=== PATIENT | female | born 1955 | race Caucasian/White ===

== ENCOUNTER 2021-03-13 21:43 | Observation (INO) ==
[2021-03-13] MEDS ORDERED: ONDANSETRON 4 MG/2 ML VIAL IV ONE (22:05)
[2021-03-13] MEDS ORDERED: fentaNYL 100 MCG/2 ML VIAL IV ONE ×2 (22:05→23:36)
--- NOTE | 2021-03-13 22:21 | Emergency Department Note ---
Abdominal Pain HPI General Chief Complaint: Abdominal Pain Stated Complaint: Gallbladder pain Time Seen by Provider: 03/13/21 22:00 Source: patient Mode of arrival: ambulatory Limitations: no limitations and other (Uncomfortable appearing) History of Present Illness HPI Narrative: Narrative: Patient presents emergency department for evaluation of epigastric and right upper quadrant abdominal pain. She has a known history of gallstones. She ate a little bit of [place] food about 7:00 and shortly thereafter developed epigastric and right upper quadrant abdominal pain consistent with her prior episodes of pain. No fever. Symptoms are associate with nausea vomiting. No other complaints. Related Data Home Medications Medication Instructions Recorded Confirmed cholecalciferol (vitamin D3) 50 2,000 unit PO HS 08/16/17 03/13/21 mcg (2,000 unit) capsule ascorbate calcium (vitamin C) 500 500 mg PO QDAY 12/27/19 03/13/21 mg tablet ipratropium 0.5 mg-albuterol 3 mg 3 ml INHALATION TID PRN ml 09/15/20 03/14/21 (2.5 mg base)/3 mL nebulization soln triamcinolone acetonide 0.1 % 1 applic TOPICAL TID PRN g 09/15/20 03/14/21 topical ointment acetaminophen 650 mg 1,300 mg PO Q12H 10/12/20 03/13/21 tablet,extended release calcium 600 mg PO HS 03/12/21 03/13/21 clotrimazole-betamethasone 1 applic TOPICAL BID PRN 03/12/21 03/13/21 duloxetine 20 mg PO HS 03/12/21 03/13/21 ncdpqkgq-his-qnip-FA-lutein 1 tab PO HS 03/12/21 03/13/21 [Centrum Silver Women] omeprazole 40 mg PO HS 03/12/21 03/14/21 Previous Rx's Medication Instructions Recorded nebulizer accessories #1 each 08/29/17 nebulizers #1 each 08/29/17 CPAP mask #1 ea 11/01/18 albuterol sulfate 1 - 2 puff IH Q6H PRN #1 hfa.aer.ad 07/29/19 cpap machine #1 ea 09/26/19 amitriptyline 75 mg tablet 75 mg PO QHS 90 Days #90 tab 07/21/20 amlodipine 2.5 mg tablet 2.5 mg PO QHS 90 Days #90 tab 09/30/20 hydrochlorothiazide 12.5 mg tablet 12.5 mg PO QAM 90 Days #90 tab 10/26/20 rosuvastatin 20 mg tablet 20 mg PO QDAY 90 Days #90 tab 12/03/20 montelukast 10 mg tablet 10 mg PO QDAY 90 Days #90 tab 02/24/21 sucralfate [Carafate] 10 ml PO QID #400 ml 03/10/21 Allergies Allergy/AdvReac Type Severity Reaction Status Date / Time methylene blue AdvReac Severe Unknown Verified 03/13/21 21:51 losartan AdvReac Intermediate Rash Verified 03/13/21 21:51 salmeterol AdvReac Intermediate choking Verified 03/13/21 21:51 [From Advair Diskus] and gagging horse serum Allergy Unknown Anaphylaxis Uncoded 03/12/21 15:49 Review of Systems ROS ROS Narrative: Narrative: As above, all other systems reviewed and negative. [facility] Narrative Patient History Narrative: Narrative: Reviewed Medical/Surgical/Family History All Active Problems (Updated 03/14/21 @ 00:52 by Joshua Holley MD) Cholelithiasis (Acute) Cholelithiasis (Acute) Acute epigastric pain (Acute) Elevated liver enzymes (Acute) Medicare annual wellness visit, initial (Acute) Mild anemia (Chronic) Injury of ankle, right (Acute) Fatty liver (Chronic) Bronchitis due to chemical (Acute) Acute bacterial rhinosinusitis (Acute) Bronchitis (Acute) Restless legs (Chronic) Sinusitis (Chronic) History of shingles (Chronic) Low back pain syndrome (Acute) Foot pain (Acute) RUSSELL (nonalcoholic steatohepatitis) (Chronic) Paresthesia of hand, bilateral (Chronic) Elevated liver enzymes (Chronic) LIZBETH positive (Chronic) Polyarthralgia (Acute) DIANA on CPAP (Chronic) Gastroesophageal reflux disease (Chronic) Respiratory distress (Acute) Dyspnea (Acute) Microalbuminuria (Chronic) Osteopenia (Chronic) Vitamin D deficiency (Chronic) Hypercalcemia (Chronic) History of parathyroidectomy (Chronic) Obesity (Chronic) H/O colonoscopy (Chronic) Hx of tonsillectomy (Chronic) History of open reduction and internal fixation (ORIF) procedure (Chronic) H/O: hysterectomy (Chronic) H/O tubal ligation (Chronic) COPD (chronic obstructive pulmonary disease) (Chronic) Insomnia (Chronic) Hyperlipidemia (Chronic) Hypertension, essential (Chronic) Medical History Acute bronchitis LIZBETH positive Chilel's palsy Chronic cough COPD (chronic obstructive pulmonary disease) Depression Elevated liver enzymes Fatty liver Gastroesophageal reflux disease History of shingles Hypercalcemia Hyperlipidemia Hypertension, essential Insomnia Kidney stones Medicare annual wellness visit, initial Microalbuminuria Mild anemia MRSA infection RUSSELL (nonalcoholic steatohepatitis) Obesity DIANA on CPAP Osteopenia Paresthesia of hand, bilateral Polyarthralgia RAD (reactive airway disease) Restless legs Sinusitis Vitamin D deficiency Surgical History H/O colonoscopy July 18, 2013. H/O tubal ligation H/O: hysterectomy 2009 B9 History of open reduction and internal fixation (ORIF) procedure 2007 Leg fracture x7 History of parathyroidectomy Hx of tonsillectomy Family History Sister Hyperlipidemia Hypertension, essential Alopecia Rheumatoid arthritis Mother Diabetes Hypertension, essential Thyroid disease Kidney disease Social History Smoking Status: Never smoker Alcohol Intake Frequency: does not drink Substance Use: does not use Exam Narrative Narrative: Narrative: General Limitations: no limitations and other (Uncomfortable appearing) Head Head: Present atraumatic and normocephalic Eye Eye: Present normal appearance, PERRL and EOMI ENT ENT: Present normal exam and normal oropharynx Neck Neck: Present normal inspection Adbominal Abdominal: Present soft and other (Epigastric and right upper quadrant tenderness to palpation.); Absent distention, guarding and rebound Extremities Extremities: Present normal inspection Neurological Neurological: Present alert, oriented X3 and CN II-XII intact; Absent motor sensory deficit Psychiatric Psychiatric: Present normal affect and normal mood Skin Skin: Present warm (WNL) and dry Course Vital Signs Vital signs: Vital Signs Temperature 98.7 F 03/13/21 21:44 Pulse Rate 82 03/13/21 21:44 Respiratory Rate 24 H 03/13/21 21:44 Blood Pressure 106/88 03/13/21 21:44 Pulse Oximetry (%) 100 03/13/21 21:44 Temperature 98.7 F 03/13/21 21:44 Pulse Rate 82 03/14/21 01:08 Respiratory Rate 24 H 03/13/21 21:44 Blood Pressure 148/78 03/14/21 01:08 Pulse Oximetry (%) 95 03/14/21 01:08 [facility] MDM Narrative Medical decision making narrative: Narrative: Labs reviewed as per the electronic medical record. Patient initially medicated with fentanyl 50 mcg had some improvement with the second dose did not seem to provide much improvement. She is switched to Dilaudid. She is given Zofran. I spoke with Dr. Murrell on-call general surgeon. Case reviewed in detail over the phone. Surgery agreed with admission. Discussed findings with patient and the family. Their questions were answered. They are agreeable with the plan. Lab Data Result diagrams: 03/13/21 22:21 03/13/21 22:21 Labs: Lab Results 03/13/21 03/13/21 Range/Units 22:21 22:21 WBC 9.5 (4.5-11.0) K/mcL RBC 4.21 (4.00-5.20) M/mcL Hgb 12.8 (12.0-15.0) g/dL Hct 38.3 (36.0-48.0) % MCV 91.0 (80.0-100.0) fL MCH 30.4 (26.0-34.0) pg MCHC 33.4 (31.0-36.0) g/dL RDW 12.6 (11.5-14.5) % Plt Count 254 (140-440) K/mcL MPV 10.3 (7.4-10.4) fL Neut % (Auto) 77.7 (38.0-78.0) % Lymph % (Auto) 14.8 L (15.0-49.0) % [place] % (Auto) 4.6 (1.0-12.0) % Eos % (Auto) 2.4 (0.0-7.0) % Baso % (Auto) 0.5 (0.0-2.0) % Lymph # (Auto) 1.41 L (1.50-4.80) K/mcL [place] # (Auto) 0.44 (0.10-0.90) K/mcL Eos # (Auto) 0.23 (0.00-0.70) K/mcL Baso # (Auto) 0.05 (0.00-0.20) K/mcL Absolute Neutrophils 7.41 (1.80-8.00) K/mcL Sodium 140 (133-145) mmol/L Potassium 3.6 (3.3-5.1) mmol/L Chloride 101 (96-108) mmol/L Carbon Dioxide 22 (22-30) mmol/L Anion Gap 17.0 H (8.0-16.0) BUN 14 (8-23) mg/dL Creatinine 1.1 (0.6-1.1) mg/dL GFR Calculation 52 Glucose 176 H (70-105) mg/dL Calcium 12.1 H (8.6-10.4) mg/dL Total Bilirubin 2.1 H (0.1-1.0) mg/dL AST 141 H (<32) U/L ALT 176 H (<40) U/L Alkaline Phosphatase 555 H (39-117) U/L Total Protein 8.5 H (5.9-8.4) gm/dL Albumin 4.7 (3.2-5.2) gm/dL Globulin 3.8 H (2.2-3.7) gm/dL Albumin/Globulin Ratio 1.2 (1.0-2.3) Lipase 33 (7-60) U/L ED POC Tests ED POC Tests: CRISTINA - SARS Antigen Negative Discharge Plan Patient/Caregiver Discharge Instructions Pt seen by INSTRUCTOR DANCING/PA only: No Clinical Impression: Cholelithiasis Patient Disposition: Xfer As Inpt ([facility]) Follow up with: Johnathan Caldera PA-C [Primary Care Provider] - Prescriptions: No Action amlodipine 2.5 mg tablet 2.5 mg PO QHS 90 Days Qty: 90 RF: 3 hydrochlorothiazide 12.5 mg tablet 12.5 mg tablet 12.5 mg PO QAM 90 Days Qty: 90 RF: 3 rosuvastatin 20 mg tablet 20 mg PO QDAY 90 Days Qty: 90 RF: 1 montelukast 10 mg tablet 10 mg PO QDAY 90 Days Qty: 90 RF: 1 cholecalciferol (vitamin D3) [D3-2000] 2,000 unit capsule 2,000 unit PO HS RF: 0 (DME) nebulizers [Sinustar Nebulizer] misc See Dose Instructions .ROUTE .MEDSUPPLY Qty: 1 RF: 0 (DME) nebulizer accessories [Reusable Nebulizer Kit] kit See Dose Instructions .ROUTE .MEDSUPPLY Qty: 1 RF: 0 ascorbate calcium (vitamin C) 500 mg tablet 500 mg PO QDAY RF: 0 amitriptyline 75 mg tablet 75 mg PO QHS 90 Days Qty: 90 RF: 3 acetaminophen [Tylenol Arthritis Pain] 650 mg tablet extended release 1,300 mg PO Q12H RF: 0 (DME) cpap machine Qty: 1 RF: 0 (DME) CPAP mask Qty: 1 RF: 0 ipratropium-albuterol 0.5 mg-3 mg(2.5 mg base)/3 mL solution for nebulization 3 ml INHALATION TID PRN (Reason: shortness of breath) RF: 0 triamcinolone acetonide 0.1 % ointment 1 applic TOPICAL TID PRN (Reason: Rash) RF: 0 albuterol sulfate 8.5 GM HFA aerosol inhaler 1 - 2 puff IH Q6H PRN (Reason: Wheezing) Qty: 1 RF: 0 sucralfate [Carafate] 100 mg/mL suspension 10 ml PO QID Qty: 400 RF: 0 calcium 600 mg Capsule 600 mg PO HS RF: 0 clotrimazole-betamethasone 1-0.05 % Cream 1 applic TOPICAL BID PRN (Reason: Rash) RF: 0 omeprazole 40 mg capsule,delayed release(DR/EC) 40 mg PO HS RF: 0 Centrum Silver Women 8 mg iron-400 mcg-300 mcg Tablet 1 tab PO HS RF: 0 duloxetine 20 mg capsule,delayed release(DR/EC) 20 mg PO HS RF: 0
[2021-03-13 23:26] LABS: Basophils # (Auto) 0.05 K/mcL (0.00-0.20); Basophils % (Auto) 0.5 % (0.0-2.0); Eosinophils # (Auto) 0.23 K/mcL (0.00-0.70); Eosinophils % (Auto) 2.4 % (0.0-7.0); Hematocrit 38.3 % (36.0-48.0); Hemoglobin 12.8 g/dL (12.0-15.0); Lymphocytes # (Auto) 1.41 K/mcL (1.50-4.80); Lymphocytes % (Auto) 14.8 % (15.0-49.0); Mean Corpuscular HGB Conc 33.4 g/dL (31.0-36.0); Mean Platelet Volume 10.3 fL (7.4-10.4); Monocytes # (Auto) 0.44 K/mcL (0.10-0.90); Monocytes % (Auto) 4.6 % (1.0-12.0); Neutrophils % (Auto) 77.7 % (38.0-78.0); Platelet Count 254 K/mcL (140-440); RBC 4.21 M/mcL (4.00-5.20); Red Cell Distribution Width 12.6 % (11.5-14.5); WBC 9.5 K/mcL (4.5-11.0)
[2021-03-13 23:48] LABS: ALT/SGPT 176 U/L (<40); AST/SGOT 141 U/L (<32); Albumin 4.7 gm/dL (3.2-5.2); Albumin/Globulin Ratio 1.2 (1.0-2.3); Alkaline Phosphatase 555 U/L (39-117); Bilirubin,Total 2.1 mg/dL (0.1-1.0); Blood Urea Nitrogen 14 mg/dL (8-23); Calcium 12.1 mg/dL (8.6-10.4); Carbon Dioxide 22 mmol/L (22-30); Chloride 101 mmol/L (96-108); Globulin 3.8 gm/dL (2.2-3.7); Glomerular Filtration Rate 52; Glucose 176 mg/dL (70-105)
[2021-03-14] MEDS ORDERED: HYDROmorphone 0.5 MG/0.5 ML SYRINGE IV ONE (00:05)
[2021-03-14] MEDS ORDERED: ONDANSETRON 4 MG/2 ML VIAL IV PRN ×2 (00:49→11:16)
[2021-03-14 02:15] LABS: Appearance,Urine CLEAR (Clear); Bilirubin,Urine Negative (Negative); Color,Urine YELLOW; Culture Indicated,Urine No; Glucose,Urine (UA) Negative (Negative); Ketones,Urine 5 mg/dL (Negative); Leukocyte Esterase,Urine Negative /ug (Negative); Nitrate,Urine Negative (Negative); Protein,Urine Negative (Negative); Specific Gravity,Urine 1.017 (1.000-1.035); Urine Blood Negative (Negative)
[2021-03-14] MEDS: 0.9 % SODIUM CHLORIDE 1,000 ML IV SCH ×2 (02:45→14:54)
[2021-03-14] MEDS: HYDROmorphone 0.5 MG/0.5 ML SYRINGE IV PRN ×2 (03:25→08:01)
--- NOTE | 2021-03-14 09:28 | General Surg History&Physical ---
HPI History of Present Illness Patient information: Note initiated : 03/14/21 at 9:25 am Service Date, if different from initiated Date: [] Patient: Tanan Cristina a 65 y/o F admitted on 03/14/21 for Gallbladder pain. Chief Complaint: [] History of present illness: Ms. Cristina is a 65 year old F who was initially seen in the emergency room several days ago, I saw her in clinic 2 days ago with the following symptoms. This is a pleasant 65-year-old female who was recently seen in the emergency room with acute onset of epigastric abdominal pain. Patient was given simethicone which seemed to help with her pain, however she reports that she continues to have some nausea and epigastric pain after eating with every meal at this time. Work-up was significant for cholelithiasis, patient has a known history of gastroesophageal reflux disease and gastritis. When discussing with her symptoms she does report that she has had intermittent epigastric pain following fatty and greasy foods over the last several years but always attributed to her reflux. She denies any fevers or chills at this time. She does report some dark urine and nausea with eating. Since that time her pain is progressed she represented to the emergency room last night with increased total bili, and abdominal pain. She is admitted for laparoscopic cholecystectomy Review of Systems Review of systems: All systems are reviewed, negative other than above PFSH PFSH All Active Problems Choledocholithiasis (Acute) Cholelithiasis (Acute) Cholelithiasis (Acute) Acute epigastric pain (Acute) Elevated liver enzymes (Acute) Medicare annual wellness visit, initial (Acute) Mild anemia (Chronic) Injury of ankle, right (Acute) Fatty liver (Chronic) Bronchitis due to chemical (Acute) Acute bacterial rhinosinusitis (Acute) Bronchitis (Acute) Restless legs (Chronic) Sinusitis (Chronic) History of shingles (Chronic) Low back pain syndrome (Acute) Foot pain (Acute) RUSSELL (nonalcoholic steatohepatitis) (Chronic) Paresthesia of hand, bilateral (Chronic) Elevated liver enzymes (Chronic) LIZBETH positive (Chronic) Polyarthralgia (Acute) DIANA on CPAP (Chronic) Gastroesophageal reflux disease (Chronic) Respiratory distress (Acute) Dyspnea (Acute) Microalbuminuria (Chronic) Osteopenia (Chronic) Vitamin D deficiency (Chronic) Hypercalcemia (Chronic) History of parathyroidectomy (Chronic) Obesity (Chronic) H/O colonoscopy (Chronic) Hx of tonsillectomy (Chronic) History of open reduction and internal fixation (ORIF) procedure (Chronic) H/O: hysterectomy (Chronic) H/O tubal ligation (Chronic) COPD (chronic obstructive pulmonary disease) (Chronic) Insomnia (Chronic) Hyperlipidemia (Chronic) Hypertension, essential (Chronic) Medical History Acute bronchitis LIZBETH positive Chilel's palsy Chronic cough COPD (chronic obstructive pulmonary disease) Depression Elevated liver enzymes Fatty liver Gastroesophageal reflux disease History of shingles Hypercalcemia Hyperlipidemia Hypertension, essential Insomnia Kidney stones Medicare annual wellness visit, initial Microalbuminuria Mild anemia MRSA infection RUSSELL (nonalcoholic steatohepatitis) Obesity DIANA on CPAP Osteopenia Paresthesia of hand, bilateral Polyarthralgia RAD (reactive airway disease) Restless legs Sinusitis Vitamin D deficiency Surgical History H/O colonoscopy July 18, 2013. 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 other: Children-3 eating out: 1-3 times/week physical activity: walking and other details: treadmill and recumbent bicycle smoking status: Never smoker alcohol intake frequency: does not drink substance use type: does not use jeanette/sabianism: None seatbelt use: always MEDS/ALLERGIES Home Medications and Allergies Home Medications Medication Instructions Recorded Confirmed Type cholecalciferol (vitamin D3) 50 2,000 unit PO HS 08/16/17 03/14/21 History mcg (2,000 unit) capsule nebulizer accessories #1 each 08/29/17 03/14/21 Rx nebulizers #1 each 08/29/17 03/14/21 Rx CPAP mask #1 ea 11/01/18 03/14/21 Rx albuterol sulfate 1 - 2 puff IH Q6H PRN #1 hfa.aer.ad 07/29/19 03/14/21 Rx cpap machine #1 ea 09/26/19 03/14/21 Rx ascorbate calcium (vitamin C) 500 500 mg PO QDAY 12/27/19 03/14/21 History mg tablet amitriptyline 75 mg tablet 75 mg PO QHS 90 Days #90 tab 07/21/20 03/14/21 Rx ipratropium 0.5 mg-albuterol 3 mg 3 ml INHALATION TID PRN ml 09/15/20 03/14/21 History (2.5 mg base)/3 mL nebulization soln triamcinolone acetonide 0.1 % 1 applic TOPICAL TID PRN g 09/15/20 03/14/21 History topical ointment amlodipine 2.5 mg tablet 2.5 mg PO QHS 90 Days #90 tab 09/30/20 03/14/21 Rx acetaminophen 650 mg 1,300 mg PO Q12H 10/12/20 03/14/21 History tablet,extended release hydrochlorothiazide 12.5 mg tablet 12.5 mg PO QAM 90 Days #90 tab 10/26/20 03/14/21 Rx rosuvastatin 20 mg tablet 20 mg PO QDAY 90 Days #90 tab 12/03/20 03/14/21 Rx montelukast 10 mg tablet 10 mg PO QDAY 90 Days #90 tab 02/24/21 03/14/21 Rx sucralfate [Carafate] 10 ml PO QID #400 ml 03/10/21 03/14/21 Rx calcium 600 mg PO HS 03/12/21 03/14/21 History clotrimazole-betamethasone 1 applic TOPICAL BID PRN 03/12/21 03/14/21 History duloxetine 20 mg PO HS 03/12/21 03/14/21 History iatsswto-stf-ywix-FA-lutein 1 tab PO HS 03/12/21 03/14/21 History [Centrum Silver Women] omeprazole 40 mg PO HS 03/12/21 03/14/21 History Allergies Allergy/AdvReac Type Severity Reaction Status Date / Time methylene blue AdvReac Severe Unknown Verified 03/14/21 03:19 losartan AdvReac Intermediate Rash Verified 03/14/21 03:19 salmeterol AdvReac Intermediate choking Verified 03/14/21 03:19 [From Advair Diskus] and gagging horse serum Allergy Unknown Anaphylaxis Uncoded 03/12/21 15:49 Physical Examination Vital Signs Vital signs: Temp Pulse Resp BP Pulse Ox 97.7 F 83 18 132/72 96 03/14/21 07:48 03/14/21 07:48 03/14/21 07:48 03/14/21 07:48 03/14/21 07:48 General physical appearance General physical exam: well developed, well nourished and no distress Eyes Eye exam: PERRL and normal ocular movement ENT ENT exam: normal pinna, normal nares, normal mucosa, no hearing loss and no c ongestion Head Head exam IM: Present atraumatic and normocephalic Neck Neck exam: no masses, no bruits, trachea midline, no lymphadenopathy and no venous distension Cardiovascular Cardiovascular exam IM: Present normal rate and rhythm Respiratory Respiratory exam: normal expansion, normal respiratory effort, clear to percussion and clear to auscultation Abdomen Abdomen: Present soft, tender (RUQ) and bowel sounds Hernia: Present none Genitourinary Genitourinary (Female): Present normal external genitalia Rectum Rectum: Present normal sphincter tone, no hemorrhoids, no tenderness, no masses and no bleeding Integumentary Integumentary: Present no rash, no growths and no abnormal pigmentation Neurologic Neurologic: Present normal coordination and normal sensation Musculoskeletal Musculoskeletal: Present normal gait and normal posture Psychiatric Psychiatric: Present oriented to time, oriented to person, oriented to place, speech is normal and memory intact Results Labs Result diagrams: 03/13/21 22:21 03/13/21 22:21 Labs: Abnormal lab results 03/13/21 03/13/21 03/14/21 Range/Units 22:21 22:21 01:09 Lymph % (Auto) 14.8 L (15.0-49.0) % Lymph # (Auto) 1.41 L (1.50-4.80) K/mcL Anion Gap 17.0 H (8.0-16.0) Glucose 176 H (70-105) mg/dL Calcium 12.1 H (8.6-10.4) mg/dL Total Bilirubin 2.1 H (0.1-1.0) mg/dL AST 141 H (<32) U/L ALT 176 H (<40) U/L Alkaline Phosphatase 555 H (39-117) U/L Total Protein 8.5 H (5.9-8.4) gm/dL Globulin 3.8 H (2.2-3.7) gm/dL Urine Ketones 5 A (Negative) mg/dL Urine Urobilinogen 4.0 A mg/dL Diabetes panel 03/13/21 Range/Units 22:21 Sodium 140 (133-145) mmol/L Potassium 3.6 (3.3-5.1) mmol/L Chloride 101 (96-108) mmol/L Carbon Dioxide 22 (22-30) mmol/L BUN 14 (8-23) mg/dL Creatinine 1.1 (0.6-1.1) mg/dL Glucose 176 H (70-105) mg/dL Calcium 12.1 H (8.6-10.4) mg/dL AST 141 H (<32) U/L ALT 176 H (<40) U/L Alkaline Phosphatase 555 H (39-117) U/L Total Protein 8.5 H (5.9-8.4) gm/dL Albumin 4.7 (3.2-5.2) gm/dL Calcium panel 03/13/21 Range/Units 22:21 Calcium 12.1 H (8.6-10.4) mg/dL Albumin 4.7 (3.2-5.2) gm/dL Pituitary panel 03/13/21 Range/Units 22:21 Sodium 140 (133-145) mmol/L Potassium 3.6 (3.3-5.1) mmol/L Chloride 101 (96-108) mmol/L Carbon Dioxide 22 (22-30) mmol/L BUN 14 (8-23) mg/dL Creatinine 1.1 (0.6-1.1) mg/dL Glucose 176 H (70-105) mg/dL Calcium 12.1 H (8.6-10.4) mg/dL Adrenal panel 03/13/21 Range/Units 22:21 Sodium 140 (133-145) mmol/L Potassium 3.6 (3.3-5.1) mmol/L Chloride 101 (96-108) mmol/L Carbon Dioxide 22 (22-30) mmol/L BUN 14 (8-23) mg/dL Creatinine 1.1 (0.6-1.1) mg/dL Glucose 176 H (70-105) mg/dL Calcium 12.1 H (8.6-10.4) mg/dL Total Bilirubin 2.1 H (0.1-1.0) mg/dL AST 141 H (<32) U/L ALT 176 H (<40) U/L Alkaline Phosphatase 555 H (39-117) U/L Total Protein 8.5 H (5.9-8.4) gm/dL Albumin 4.7 (3.2-5.2) gm/dL All other labs normal. A/P Assessment and plan (1) Cholelithiasis: Status: Acute (2) Acute epigastric pain: Status: Acute (3) Elevated liver enzymes: Status: Acute (4) Choledocholithiasis: Status: Acute Narrative A/P Narrative: This is a pleasant 65-year-old female who presents with signs symptoms concerning for cholecystitis, possible choledocholithiasis. Risk, benefits, alternatives to treatment discussed with her at length. She will be admitted, plan is to take to the operating room and next available OR slot for a laparoscopic cholecystectomy with intraoperative cholangiogram, possible common bile duct expiration. She verbalizes understanding and all of her questions were answered. Time Spent With Patient Time: Total time spent is greater than 50% in coordination of care (as documented) at patient's floor/unit and/or counseling patient:
[2021-03-14] MEDS ORDERED: ceFAZolin 2 GM in DEXTROSE 5% IN WATER 50 ML IV SCH (09:30)
[2021-03-14] MEDS ORDERED: MIDAZOLAM 2 MG/2 ML VIAL ONE (09:48)
[2021-03-14] MEDS ORDERED: SUGAMMADEX SODIUM 200 MG/2 ML VIAL IV ONE (09:48)
[2021-03-14] MEDS ORDERED: ONDANSETRON 4 MG/2 ML VIAL ONE (09:48)
[2021-03-14] MEDS ORDERED: KETAMINE 50 MG/ML ML ONE (09:48)
[2021-03-14] MEDS ORDERED: ROCURONIUM 10 MG/ML ML IV ONE (09:48)
[2021-03-14] MEDS ORDERED: fentaNYL 100 MCG/2 ML VIAL IV ONE (09:48)
[2021-03-14] MEDS ORDERED: LIDOCAINE HCL/PF 100 MG/5 ML SYRINGE IV ONE (09:48)
[2021-03-14] MEDS ORDERED: MAGNESIUM SULFATE 2 GM/50 ML BAG IV ONE (09:48)
[2021-03-14] MEDS ORDERED: GLYCOPYRROLATE 0.2 MG/ML VIAL IV ONE (09:48)
[2021-03-14] MEDS ORDERED: DEXAMETHASONE 10 MG/ML VIAL ONE (09:48)
[2021-03-14] MEDS ORDERED: PHENYLEPHRINE 10 MG/ML VIAL ONE (09:48)
[2021-03-14] MEDS ORDERED: PROPOFOL 200 MG/20 ML VIAL IV ONE (09:48)
[2021-03-14] MEDS ORDERED: LIDOCAINE 1% 20 ML, BUPIVACAINE W/EPI 0.5% 20 ML SQ ONE (10:01)
[2021-03-14] MEDS ORDERED: IOVERSOL 20 ML VIAL IJ ONE (10:01)
--- NOTE | 2021-03-14 10:55 | Operative Note ---
Brief Operative Note Date of procedure: 03/14/21 Pre-op diagnosis: Acute cholecystitis, choledocholithiasis Post-op diagnosis: same Procedure: Exploratory laparotomy with interoperative cholangiogram Grafts/Implants: No Anesthesia: GETA Findings: Distal common bile duct stone which passed spontaneously with cholangiogram, cholecystitis, gallbladder hydrops Complications: none Surgeon: Neymar Murrell Estimated blood loss (cc): 25 Specimens Removed/Pathology: other (Gallbladder and contents) Condition: stable Disposition: PACU Operative Note Operative Note: After risk benefits and alternatives to the procedure were discussed with the patient at length she verbalized understanding and desire to continue with the procedure. Patient was taken main operating room placed upon the operative table. General anesthesia was induced over endotracheal tube. Patient was prepped and draped in the standard sterile surgical fashion. Surgical timeout was taken to verify patient and procedure being performed. 1% lidocaine half percent Marcaine was used for local anesthesia throughout the case. Left upper quadrant incision was made, a varies needle was inserted and the abdominal cavity was insufflated with carbon dioxide. The abdominal cavity was then entered under direct vision using a 5 mm Optiview trocar through a supraumbilical incision. Visual inspection revealed no injuries and the varies needle was removed under direct vision. 12 mm upper midline trocar, 5 mm right upper quadrant, and a second 5 mm right upper quadrant trochars were all placed under direct vision. Patient was placed in a head up right side up position. Attention was turned to the gallbladder which was acutely inflamed and dilated. Large amount of omental adhesions were carefully taken down with blunt and electrocautery dissection. This was dissected down to the infundibulum which was then carefully dissected free with blunt and electrocautery dissection after releasing the peritoneum to pedunculated the gallbladder. Once a critical view of safety was clearly identified the cystic duct was surgically clipped, a ductotomy was created and on table cholangiogram was performed. The common bile duct common hepatic left and right hepatic ducts filled without difficulty, there was a small distal obstruction which released and passed into the small bowel and the small bowel filled without difficulty after couple seconds under fluoroscopy. The cholangiocatheter was removed, the cystic duct and cystic artery were then surgically clipped and transected. The gallbladder was removed from the gallbladder fossa using electrocautery, placed in Endo Catch bag removed through the upper midline incision and passed off the field for surgical pathology. Attention was turned back to the gallbladder fossa which was copiously irrigated and all irrigant was suctioned free from the abdominal cavity. The gallbladder fossa was inspected for hemostasis which was obtained by electrocautery. Visual inspection of the clips showed that they were in good position. The upper midline fascial defect was then reapproximated with a interrupted 0 Vicryl suture. CO2 and trochars were removed from the abdominal cavity under direct vision. Trocar sites were inspected for hemostasis. Skin edges were closed with interrupted 4 Monocryl sutures skin glue dressings were applied. Patient was then awakened from anesthesia transported postanesthesia care unit awake alert in good condition.
--- NOTE | 2021-03-14 11:10 | Discharge Summary ---
Discharge Provider Provider Patient information: Note initiated : 03/14/21 at 11:09 am Service Date, if different from initiated Date: [] Patient: Tanna Cristina 65 y/o F admitted on 03/14/21 for Gallbladder pain. Chief Complaint: [] Date of admission: 03/14/21 02:33 Discharge date: 03/14/21 Primary care physician: Johnathan Caldera PA-C Consults: 03/14/21 Consult to Physician [CONS] Stat Comment: Consulting Provider: Neymar Murrell Reason For Exam: Physician to Consult COURSE Hospital Course Hospital course: Patient mated with acute cholecystitis, possible choledocholithiasis. Patient was taken operating room underwent a laparoscopic cholecystectomy with interoperative cholangiogram which showed distal common bile duct obstruction which released during the cholangiogram. Patient tolerated procedure well. Discharge diagnosis: Status post cholecystectomy Time Spent with Patient Time attestation: Total time spent providing and/or coordinating discharge services: Physical Examination Vital Signs Vital signs: Temp Pulse Resp BP Pulse Ox 97.7 F 90 15 128/78 91 03/14/21 07:48 03/14/21 11:03 03/14/21 11:03 03/14/21 11:04 03/14/21 11:03 Discharge Plan Patient/Caregiver Discharge Instructions Activity: increase activity as tolerated Diet: Regular Diet Activity Restrictions/Additional Instructions: Gradually increase activity as tolerated, no weight lifting restrictions. Resume bathing as normal. Resume normal diet as tolerated, avoid fatty and greasy foods for the next 3 to 6 months. Prescriptions: New ibuprofen 800 mg tablet 800 mg PO TID PRN (Reason: pain) Qty: 60 RF: 0 acetaminophen [Tylenol 8 Hour] 650 mg tablet extended release 650 mg PO Q8H PRN (Reason: pain) Qty: 60 RF: 0 oxycodone 5 mg tablet 5 mg PO Q6H PRN (Reason: pain) Qty: 5 RF: 0 Continued amlodipine 2.5 mg tablet 2.5 mg PO QHS 90 Days Qty: 90 RF: 3 hydrochlorothiazide 12.5 mg tablet 12.5 mg tablet 12.5 mg PO QAM 90 Days Qty: 90 RF: 3 rosuvastatin 20 mg tablet 20 mg PO QDAY 90 Days Qty: 90 RF: 1 montelukast 10 mg tablet 10 mg PO QDAY 90 Days Qty: 90 RF: 1 cholecalciferol (vitamin D3) [D3-2000] 2,000 unit capsule 2,000 unit PO HS RF: 0 (DME) nebulizers [Sinustar Nebulizer] misc See Dose Instructions .ROUTE .MEDSUPPLY Qty: 1 RF: 0 (DME) nebulizer accessories [Reusable Nebulizer Kit] kit See Dose Instructions .ROUTE .MEDSUPPLY Qty: 1 RF: 0 ascorbate calcium (vitamin C) 500 mg tablet 500 mg PO QDAY RF: 0 amitriptyline 75 mg tablet 75 mg PO QHS 90 Days Qty: 90 RF: 3 acetaminophen [Tylenol Arthritis Pain] 650 mg tablet extended release 1,300 mg PO Q12H RF: 0 (DME) cpap machine Qty: 1 RF: 0 (DME) CPAP mask Qty: 1 RF: 0 ipratropium-albuterol 0.5 mg-3 mg(2.5 mg base)/3 mL solution for nebulization 3 ml INHALATION TID PRN (Reason: shortness of breath) RF: 0 triamcinolone acetonide 0.1 % ointment 1 applic TOPICAL TID PRN (Reason: Rash) RF: 0 albuterol sulfate 8.5 GM HFA aerosol inhaler 1 - 2 puff IH Q6H PRN (Reason: Wheezing) Qty: 1 RF: 0 sucralfate [Carafate] 100 mg/mL suspension 10 ml PO QID Qty: 400 RF: 0 calcium 600 mg Capsule 600 mg PO HS RF: 0 clotrimazole-betamethasone 1-0.05 % Cream 1 applic TOPICAL BID PRN (Reason: Rash) RF: 0 omeprazole 40 mg capsule,delayed release(DR/EC) 40 mg PO HS RF: 0 Centrum Silver Women 8 mg iron-400 mcg-300 mcg Tablet 1 tab PO HS RF: 0 duloxetine 20 mg capsule,delayed release(DR/EC) 20 mg PO HS RF: 0 Follow Up Plan Follow up with: Johnathan Caldera PA-C [Primary Care Provider] - Neymar Murrell MD [Physician] - Patient Disposition: Home, Self-Care Discharge Orders: Discharge Order (Routine); Ordered 03/14/21 Ordered By: Neymar Murrell Pending Pending Pending: Resuscitation Status Full Code Diet NPO Diet (NOW) Start Sun Mar 14 149 Hydromorphone HCl (Hydromorphone 0.5 Mg/0.5 Ml Syringe) 0.5 mg IV Q2HP PRN; Protocol PRN Reason: Per Pain Protocol Last Admin: 03/14/21 08:01 Dose: 0.5 mg Documented by: [email or web address] Admin: 03/14/21 03:25 Dose: 0.5 mg Documented by: PEDRO LUIS Sodium Chloride (Sodium Chloride 0.9%) 1,000 mls @ 125 mls/hr IV .Q8H KEKE Last Admin: 03/14/21 02:45 Dose: 125 mls/hr Documented by: [email or web address] Cefazolin Sodium 2 gm/ (Dextrose) 50 mls @ 100 mls/hr IV PREOP KEKE; Protocol Stop: 03/14/21 16:00 Last Infusion: 03/14/21 10:15 Dose: 0 mls/hr Documented by: Admin: 03/14/21 09:48 Dose: 100 mls/hr Documented by: JAMIE Shift Summary 03/14/21 04:24 Shift Summary by Taniya Partida, pleasant and cooperative. Up ad frankie. Had came in on the 03/10 with abdominal pain and was found to have non obstructing gallstones. Surgery was scheduled for this with Dr Murrell to have her gallblader removed. After she ate dinner last night she started having excruciating pain and came back to the ED. She was admitted to the floor around [address] Murrell doing surgery today. The ED sent of MRSA, covid negative, EKG, and UA to have done for surgery. Patient wears a cpap at home so was put on 2L oxymask. 22G LH NS @ 125. Dilaudid 0.5mg X 1. BP have been elevated. Will update at bedside. Initialized on 03/14/21 04:24 - END OF NOTE
[2021-03-14] MEDS ORDERED: IPRATROPIUM/ALBUTEROL 3 ML AMPUL.NEB NEB ONE (11:14)
[2021-03-14] MEDS ORDERED: fentaNYL 100 MCG/2 ML VIAL IV PRN (11:16)
[2021-03-14] MEDS ORDERED: KETOROLAC 15 MG/ML VIAL IV PRN (11:16)
[2021-03-14] MEDS ORDERED: BENZOCAINE/MENTHOL 1 LOZENGE PO PRN (11:16)
[2021-03-14] MEDS ORDERED: MEPERIDINE 50 MG/ML VIAL IM PRN (11:16)
[2021-03-14] MEDS ORDERED: PROMETHAZINE 25 MG/ML VIAL IM PRN (11:16)
[2021-03-14] MEDS ORDERED: MEPERIDINE 25 MG/ML VIAL IV PRN (11:16)
[2021-03-14] MEDS ORDERED: IPRATROPIUM/ALBUTEROL 3 ML AMPUL.NEB NEB PRN (11:16)
[2021-03-14] MEDS ORDERED: LACTATED RINGERS 1,000 ML IV SCH (11:30)
[2021-03-14] MEDS ORDERED: oxyCODONE 10 MG TAB.ER.12H PO SCH (13:00)
[2021-03-14] MEDS ORDERED: oxyCODONE HCL 5 MG TABLET PO PRN (13:09)
--- NOTE | 2021-03-14 15:08 | XRay Report ---
CLINICAL INFORMATION: surgery COMPARISON: None. FINDINGS: Intraoperative cholangiogram with contrast injected into the cystic duct. Cystic duct, proximal right and left ducts, common hepatic and common bile duct shows no filling defects seen to suggest choledocholithiasis. The ducts are normal caliber.. IMPRESSION: Visualized intrahepatic and common bile ducts are normal caliber - no evidence of choledocholithiasis Interpreted and Authenticated by: Ken Land 03/14/21
--- NOTE | 2021-03-14 17:19 | EKG ---
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 Measurements Intervals [place] Rate: 77 P: 44 [place]: 189 QRS: -40 QRSD: 110 T: 64 QT: 412 QTc: 467 Interpretive Statements Sinus rhythm Left anterior fascicular block Left ventricular hypertrophy Since previous ECG of 03-12-2021 NSC ABNORMAL ECG Electronically Signed On 03-14-2021 17:19:00 PDT by Pedro Bernard M.D. /[facility] [place]/[id number]
--- NOTE | 2021-03-17 16:16 | Surgical Pathology Report ---
Histology Microscopic Diagnosis Specimen A- GALLBLADDER, CHOLECYSTECTOMY: --- ACUTE AND CHRONIC CHOLECYSTITIS WITH CHOLELITHIASIS. (ACP:sln) Procedural Impression Cholelithiasis. Gross Description Received in formalin labeled with the patient information designated as gallbladder, is a 8.1 x 3.9 x 1.8 cm pink purple gallbladder specimen. The majority of the serosa is smooth and glistening with approximately 40% roughened brown-lion. There are two metal clamps present one of which is on the cystic duct. A 0.3 cm hole is present at the fundus of the gallbladder specimen. The mucosa is velvety pink-lion with no masses or lesions identified. The wall is up to 0.4 cm thick. Within the gallbladder specimen and the specimen container are multiple soft black-brown rounded stones, up to 0.3 cm. Rodbuster portions are submitted in one cassette. (KGW:bmw) Electronically Signed Valentin Barrera MD, FCAP Electronically Signed 03/17/2021 16:09
== END 2021-03-14 14:30 | disposition home or self-care (01) ==
LOC: ICU 21:43 → ED 21:43 → ICU 03-14 02:36
PROVIDERS: ADMIT Surgery; ATTEND Surgery

== ENCOUNTER 2023-05-02 10:46 | Inpatient (IN) ==
[2023-05-02] MEDS ORDERED: LACTATED RINGERS 1,000 ML IV ONE (10:58)
[2023-05-02 11:16] LABS: POC Calcium, Ionized 1.36 (1.16-1.32); POC Creatinine 1.4 (0.6-1.2); POC Potassium 4.1 (3.3-5.1)
[2023-05-02] MEDS ORDERED: DEXTROSE 50% 50 ML SYRINGE IV ONE (11:53)
[2023-05-02] MEDS ORDERED: INSULIN REGULAR, HUMAN 1 UNIT/0.01 ML UNIT IV ONE (11:53)
[2023-05-02 12:00] LABS: Basophils # (Auto) 0.09 K/mcL (0.00-0.30); Basophils % (Auto) 1.3 % (0.0-2.0); Eosinophils # (Auto) 0.17 K/mcL (0.00-0.70); Eosinophils % (Auto) 2.4 % (0.0-7.0); Hematocrit 37.5 % (34.1-44.9); Hemoglobin 13.1 g/dL (11.2-15.7); Lymphocytes # (Auto) 1.72 K/mcL (1.50-4.80); Lymphocytes % (Auto) 24.6 % (15.5-49.0); Mean Cell Volume 87.2 fL (80.0-100.0); Mean Corpuscular HGB Conc 34.9 g/dL (31.0-36.0); Mean Platelet Volume 11.1 fL (8.8-12.5); Monocytes # (Auto) 0.49 K/mcL (0.10-0.90); Neutrophils % (Auto) 64.4 % (38.0-78.0); Platelet Count 241 K/mcL (140-440); Red Cell Distribution Width 12.8 % (11.5-14.5)
[2023-05-02 12:06] LABS: Appearance,Urine HAZY (Clear); Bilirubin,Urine Negative (Negative); Color,Urine YELLOW; Culture Indicated,Urine yes; Glucose,Urine (UA) >=500 mg/dL (Negative); Ketones,Urine 5 mg/dL (Negative); Leukocyte Esterase,Urine 25 /uL (Negative); Mucus,Urine FEW /hpf; Nitrate,Urine Negative (Negative); Protein,Urine 30 mg/dL (Negative); Specific Gravity,Urine 1.029 (1.000-1.035); Urine Blood Negative (Negative); Urine Hyaline Cast 1 /lph (0-2); Urine RBC 4 /hpf (0-3); Urine Squamous Epithelial Cell 1 /hpf (0-4); Urine Transitional Epi Cells 1 /hpf (0-2); Urine WBC 12 /hpf (0-4); Urobilinogen,Urine Negative
[2023-05-02 12:25] LABS: Beta Hydroxybutyrate 2.04 mmol/L (<0.27)
[2023-05-02 12:26] LABS: ALT/SGPT 32 U/L (<40); AST/SGOT 41 U/L (<32); Albumin 4.6 gm/dL (3.2-5.2); Alkaline Phosphatase 269 U/L (39-117); Bilirubin,Direct 0.3 mg/dL (<0.3); Bilirubin,Total 1.1 mg/dL (0.1-1.0); Globulin 3.5 gm/dL (2.2-3.7)
[2023-05-02 12:40] LABS: Hemoglobin A1C 13.3 % Hgb (4.0-6.0)
[2023-05-02 12:46] LABS: ABG Methemoglobin 0.1 % (0.4-1.5); Total Hemoglobin 13.5 gm/Dl (12.0-15.0); VBG Base Excess 2 (-2-3); VBG HCO3 25.4 mmol/L (24.0-28.0); VBG PCO2 37.7 mmHg (41.0-51.0); VBG PH 7.45 U (7.32-7.42); VBG PO2 79.5 mmHg (25.0-40.0); VBG Total CO2 26.5 mmol/L (25.0-29.0)
[2023-05-02] MEDS: INSULIN REGULAR, HUMAN 50 UNIT in 0.9 % SODIUM CHLORIDE 99.5 ML IV SCH ×2 (12:59→22:51)
[2023-05-02] MEDS ORDERED: LACTULOSE 20 GM/30 ML ORAL.SOL PO PRN (14:12)
[2023-05-02] MEDS: 0.9 % SODIUM CHLORIDE 1,000 ML IV SCH ×2 (15:13→20:59)
[2023-05-02] MEDS ORDERED: DEXTROSE 5%-LR 1,000 ML IV SCH ×2 (15:15→21:16)
[2023-05-02] MEDS: HYDROCORTISONE ACETATE 25 MG SUPP.RECT PR SCH ×2 (17:11→21:00)
[2023-05-02 17:32] LABS: ALT/SGPT 28 U/L (<40); AST/SGOT 43 U/L (<32); Albumin/Globulin Ratio 1.2 (1.0-2.3); Alkaline Phosphatase 240 U/L (39-117); Bilirubin,Total 0.8 mg/dL (0.1-1.0); Blood Urea Nitrogen 11 mg/dL (8-23); Carbon Dioxide 26 mmol/L (22-30); Chloride 93 mmol/L (96-108); Globulin 3.3 gm/dL (2.2-3.7); Glomerular Filtration Rate 51; Glucose 184 mg/dL (70-105)
[2023-05-02] MEDS: IPRATROPIUM/ALBUTEROL 3 ML AMPUL.NEB NEB SCH (19:10)
[2023-05-02] MEDS ORDERED: INSULIN REGULAR, HUMAN 1 UNIT/0.01 ML UNIT ONE ×4 (19:14→22:44)
[2023-05-02] MEDS: BUDESONIDE 0.5 MG/2 ML AMPUL.NEB NEB SCH (19:20)
[2023-05-02] MEDS: SENNOSIDES 1 TABLET PO PRN (19:25)
[2023-05-02] MEDS: DOCUSATE SODIUM 100 MG CAPSULE PO SCH (19:25)
[2023-05-02] MEDS: 0.9 % SODIUM CHLORIDE 10 ML SYRINGE IV SCH (22:02)
[2023-05-03] MEDS ORDERED: INSULIN REGULAR, HUMAN 1 UNIT/0.01 ML UNIT ONE (00:52)
[2023-05-03] MEDS: INSULIN REGULAR, HUMAN 50 UNIT in 0.9 % SODIUM CHLORIDE 99.5 ML IV SCH (00:56)
[2023-05-03] MEDS: IPRATROPIUM/ALBUTEROL 3 ML AMPUL.NEB NEB SCH ×4 (01:01→18:40)
[2023-05-03 04:48] LABS: ABG Methemoglobin 0.1 % (0.4-1.5); Total Hemoglobin 12.5 gm/Dl (12.0-15.0); VBG Base Excess 1 (-2-3); VBG HCO3 24.4 mmol/L (24.0-28.0); VBG Oxygen Saturation 91.4 % (40.0-70.0); VBG PCO2 35.7 mmHg (41.0-51.0); VBG PH 7.45 U (7.32-7.42); VBG PO2 87.5 mmHg (25.0-40.0); VBG Total CO2 25.5 mmol/L (25.0-29.0)
[2023-05-03] MEDS: 0.9 % SODIUM CHLORIDE 10 ML SYRINGE IV SCH ×3 (05:06→20:14)
[2023-05-03 05:07] LABS: Basophils # (Auto) 0.04 K/mcL (0.00-0.30); Basophils % (Auto) 0.5 % (0.0-2.0); Eosinophils # (Auto) 0.19 K/mcL (0.00-0.70); Eosinophils % (Auto) 2.2 % (0.0-7.0); Hematocrit 32.7 % (34.1-44.9); Hemoglobin 11.2 g/dL (11.2-15.7); Lymphocytes # (Auto) 2.21 K/mcL (1.50-4.80); Lymphocytes % (Auto) 26.1 % (15.5-49.0); Mean Cell Volume 89.6 fL (80.0-100.0); Mean Corpuscular HGB Conc 34.3 g/dL (31.0-36.0); Mean Platelet Volume 10.7 fL (8.8-12.5); Monocytes # (Auto) 0.55 K/mcL (0.10-0.90); Monocytes % (Auto) 6.5 % (1.0-12.0); Neutrophils % (Auto) 64.2 % (38.0-78.0); Platelet Count 191 K/mcL (140-440); RBC 3.65 M/mcL (3.59-5.38); Red Cell Distribution Width 12.8 % (11.5-14.5); WBC 8.5 K/mcL (4.5-11.0)
[2023-05-03 05:16] LABS: Carbon Dioxide 24 mmol/L (22-30); Chloride 95 mmol/L (96-108)
[2023-05-03 05:16] LABS: ALT/SGPT 25 U/L (<40); AST/SGOT 39 U/L (<32); Albumin 3.6 gm/dL (3.2-5.2); Albumin/Globulin Ratio 1.2 (1.0-2.3); Alkaline Phosphatase 225 U/L (39-117); Bilirubin,Total 0.6 mg/dL (0.1-1.0); Blood Urea Nitrogen 9 mg/dL (8-23); Calcium 10.6 mg/dL (8.6-10.4); Carbon Dioxide 24 mmol/L (22-30); Chloride 95 mmol/L (96-108); Globulin 3.1 gm/dL (2.2-3.7); Glomerular Filtration Rate 57; Glucose 155 mg/dL (70-105)
[2023-05-03] MEDS ORDERED: POTASSIUM CHLORIDE 20 MEQ TABLET PO ONE ×3 (05:40→10:00)
[2023-05-03] MEDS ORDERED: POTASSIUM CHLORIDE 40 MEQ in DEXTROSE 5% IN WATER 500 ML IV ONE (05:40)
[2023-05-03] MEDS ORDERED: POTASSIUM CHLORIDE 20 MEQ/10 ML VIAL IV ONE (05:55)
[2023-05-03] MEDS ORDERED: INSULIN LISPRO 1 UNIT/0.01 ML UNIT SQ SCH (07:00)
[2023-05-03] MEDS: BUDESONIDE 0.5 MG/2 ML AMPUL.NEB NEB SCH (07:12)
[2023-05-03] MEDS ORDERED: MAGNESIUM SULFATE 4 GM/100 ML BAG IV ONE (07:22)
[2023-05-03] MEDS: glipiZIDE 2.5 MG TAB.XL.24H PO SCH ×2 (07:53→17:05)
[2023-05-03] MEDS: INSULIN LISPRO 1 UNIT/0.01 ML UNIT SQ SCH ×6 (07:53→20:37)
[2023-05-03] MEDS: DOCUSATE SODIUM 100 MG CAPSULE PO SCH ×2 (07:54→20:38)
[2023-05-03] MEDS: ACETAMINOPHEN 325 MG TABLET PO PRN (07:54)
[2023-05-03] MEDS: metFORMIN 500 MG TABLET PO SCH ×2 (07:54→17:05)
[2023-05-03] MEDS: HYDROCORTISONE ACETATE 25 MG SUPP.RECT PR SCH ×2 (07:59→20:37)
[2023-05-03 11:22] LABS: Blood Urea Nitrogen 8 mg/dL (8-23); Carbon Dioxide 19 mmol/L (22-30); Chloride 96 mmol/L (96-108); Glomerular Filtration Rate 51; Glucose 439 mg/dL (70-105)
[2023-05-03] MEDS: ONDANSETRON 4 MG/2 ML VIAL IV PRN (12:44)
[2023-05-03 12:48] LABS: Carbon Dioxide 20 mmol/L (22-30); Chloride 96 mmol/L (96-108)
[2023-05-03] MEDS ORDERED: DEXTROSE 50% 50 ML VIAL IV PRN (17:32)
[2023-05-03] MEDS ORDERED: DEXTROSE 31 GM ORAL.SUSP PO PRN (17:32)
[2023-05-03] MEDS: DULoxetine 20 MG CAPSULE PO SCH (20:46)
[2023-05-03 21:18] LABS: Carbon Dioxide 19 mmol/L (22-30); Chloride 98 mmol/L (96-108)
[2023-05-04] MEDS: IPRATROPIUM/ALBUTEROL 3 ML AMPUL.NEB NEB SCH ×4 (00:45→19:03)
[2023-05-04] MEDS: 0.9 % SODIUM CHLORIDE 10 ML SYRINGE IV SCH ×3 (05:14→21:05)
[2023-05-04] MEDS: BUDESONIDE 0.5 MG/2 ML AMPUL.NEB NEB SCH ×3 (07:02→19:03)
[2023-05-04 07:09] LABS: Basophils # (Auto) 0.05 K/mcL (0.00-0.30); Basophils % (Auto) 0.7 % (0.0-2.0); Eosinophils % (Auto) 2.8 % (0.0-7.0); Hematocrit 34.4 % (34.1-44.9); Hemoglobin 11.1 g/dL (11.2-15.7); Lymphocytes # (Auto) 1.78 K/mcL (1.50-4.80); Lymphocytes % (Auto) 24.6 % (15.5-49.0); Mean Cell Volume 92.2 fL (80.0-100.0); Mean Corpuscular HGB Conc 32.3 g/dL (31.0-36.0); Monocytes # (Auto) 0.51 K/mcL (0.10-0.90); Neutrophils % (Auto) 64.3 % (38.0-78.0); Platelet Count 180 K/mcL (140-440); RBC 3.73 M/mcL (3.59-5.38); Red Cell Distribution Width 13.4 % (11.5-14.5); WBC 7.2 K/mcL (4.5-11.0)
[2023-05-04] MEDS: metFORMIN 500 MG TABLET PO SCH ×2 (07:20→17:00)
[2023-05-04] MEDS: INSULIN LISPRO 1 UNIT/0.01 ML UNIT SQ SCH ×4 (07:20→21:04)
[2023-05-04] MEDS: HYDROCORTISONE ACETATE 25 MG SUPP.RECT PR SCH ×2 (08:36→21:03)
[2023-05-04] MEDS: DOCUSATE SODIUM 100 MG CAPSULE PO SCH ×2 (08:36→21:03)
[2023-05-04] MEDS: SENNOSIDES 1 TABLET PO PRN (08:38)
[2023-05-04] MEDS: INSULIN GLARGINE, HUMAN 1 UNIT/0.01 ML SQ SCH ×2 (10:40→21:04)
[2023-05-04] MEDS: glipiZIDE 2.5 MG TAB.XL.24H PO SCH ×2 (13:30→17:00)
[2023-05-04] MEDS: DULoxetine 20 MG CAPSULE PO SCH (21:03)
[2023-05-04] MEDS ORDERED: POTASSIUM CHLORIDE 20 MEQ PACKET PO ONE ×2 (21:58→22:09)
[2023-05-04 22:54] LABS: Blood Urea Nitrogen 5 mg/dL (8-23); Calcium 10.8 mg/dL (8.6-10.4); Carbon Dioxide 24 mmol/L (22-30); Chloride 100 mmol/L (96-108); Glomerular Filtration Rate 65; Glucose 161 mg/dL (70-105)
[2023-05-05] MEDS: IPRATROPIUM/ALBUTEROL 3 ML AMPUL.NEB NEB SCH ×4 (01:06→19:26)
[2023-05-05] MEDS: 0.9 % SODIUM CHLORIDE 10 ML SYRINGE IV SCH ×3 (05:49→18:00)
[2023-05-05 07:23] LABS: Basophils # (Auto) 0.05 K/mcL (0.00-0.30); Basophils % (Auto) 0.7 % (0.0-2.0); Eosinophils # (Auto) 0.28 K/mcL (0.00-0.70); Hemoglobin 11.2 g/dL (11.2-15.7); Lymphocytes % (Auto) 24.1 % (15.5-49.0); Mean Cell Volume 92.1 fL (80.0-100.0); Mean Corpuscular HGB Conc 32.9 g/dL (31.0-36.0); Mean Platelet Volume 10.7 fL (8.8-12.5); Monocytes # (Auto) 0.49 K/mcL (0.10-0.90); Monocytes % (Auto) 6.9 % (1.0-12.0); Neutrophils % (Auto) 63.7 % (38.0-78.0); Platelet Count 200 K/mcL (140-440); RBC 3.69 M/mcL (3.59-5.38); Red Cell Distribution Width 13.6 % (11.5-14.5); WBC 7.1 K/mcL (4.5-11.0)
[2023-05-05] MEDS: BUDESONIDE 0.5 MG/2 ML AMPUL.NEB NEB SCH ×2 (07:47→19:27)
[2023-05-05] MEDS: INSULIN LISPRO 1 UNIT/0.01 ML UNIT SQ SCH ×5 (08:01→20:38)
[2023-05-05] MEDS: metFORMIN 500 MG TABLET PO SCH ×2 (08:06→17:02)
[2023-05-05] MEDS: DOCUSATE SODIUM 100 MG CAPSULE PO SCH ×2 (08:06→20:27)
[2023-05-05] MEDS: INSULIN GLARGINE, HUMAN 1 UNIT/0.01 ML SQ SCH ×2 (08:07→20:38)
[2023-05-05] MEDS: POTASSIUM CHLORIDE 20 MEQ PACKET PO SCH ×3 (08:08→17:56)
[2023-05-05 08:19] LABS: Blood Urea Nitrogen 6 mg/dL (8-23); Carbon Dioxide 23 mmol/L (22-30); Chloride 104 mmol/L (96-108); Glomerular Filtration Rate 65; Glucose 147 mg/dL (70-105)
[2023-05-05] MEDS: HYDROCORTISONE ACETATE 25 MG SUPP.RECT PR SCH (09:18)
[2023-05-05] MEDS: glipiZIDE 2.5 MG TAB.XL.24H PO SCH (09:19)
[2023-05-05] MEDS: ONDANSETRON 4 MG/2 ML VIAL IV PRN (11:21)
[2023-05-05 14:47] LABS: Blood Urea Nitrogen 6 mg/dL (8-23); Carbon Dioxide 23 mmol/L (22-30); Chloride 103 mmol/L (96-108); Glomerular Filtration Rate 65; Glucose 153 mg/dL (70-105)
[2023-05-05] MEDS ORDERED: IPRATROPIUM/ALBUTEROL 3 ML AMPUL.NEB NEB PRN (16:29)
[2023-05-05] MEDS: ACETAMINOPHEN 325 MG TABLET PO PRN (19:41)
[2023-05-05] MEDS: DULoxetine 20 MG CAPSULE PO SCH (20:38)
[2023-05-05 22:02] LABS: Blood Urea Nitrogen 5 mg/dL (8-23); Calcium 10.8 mg/dL (8.6-10.4); Carbon Dioxide 21 mmol/L (22-30); Chloride 102 mmol/L (96-108); Glomerular Filtration Rate 57; Glucose 145 mg/dL (70-105)
[2023-05-06] MEDS: IPRATROPIUM/ALBUTEROL 3 ML AMPUL.NEB NEB SCH ×4 (00:50→19:21)
[2023-05-06] MEDS: BUDESONIDE 0.5 MG/2 ML AMPUL.NEB NEB SCH ×2 (07:20→19:21)
[2023-05-06] MEDS: DOCUSATE SODIUM 100 MG CAPSULE PO SCH ×2 (08:01→21:45)
[2023-05-06] MEDS: metFORMIN 500 MG TABLET PO SCH ×2 (08:08→17:31)
[2023-05-06] MEDS: MONTELUKAST 10 MG TABLET PO SCH (08:08)
[2023-05-06] MEDS: INSULIN GLARGINE, HUMAN 1 UNIT/0.01 ML SQ SCH (08:09)
[2023-05-06] MEDS: INSULIN LISPRO 1 UNIT/0.01 ML UNIT SQ SCH ×3 (08:11→17:35)
[2023-05-06] MEDS: POTASSIUM CHLORIDE 20 MEQ PACKET PO SCH ×2 (09:17→17:31)
[2023-05-06] MEDS ORDERED: INSULIN GLARGINE, HUMAN 1 UNIT/0.01 ML SQ SCH (10:00)
[2023-05-06 10:51] LABS: Basophils # (Auto) 0.05 K/mcL (0.00-0.30); Basophils % (Auto) 0.7 % (0.0-2.0); Eosinophils # (Auto) 0.24 K/mcL (0.00-0.70); Eosinophils % (Auto) 3.3 % (0.0-7.0); Hemoglobin 11.2 g/dL (11.2-15.7); Lymphocytes # (Auto) 1.36 K/mcL (1.50-4.80); Lymphocytes % (Auto) 18.8 % (15.5-49.0); Mean Cell Volume 97.6 fL (80.0-100.0); Mean Corpuscular HGB Conc 31.1 g/dL (31.0-36.0); Mean Platelet Volume 10.6 fL (8.8-12.5); Monocytes # (Auto) 0.41 K/mcL (0.10-0.90); Monocytes % (Auto) 5.7 % (1.0-12.0); Neutrophils % (Auto) 71.2 % (38.0-78.0); Platelet Count 196 K/mcL (140-440); RBC 3.69 M/mcL (3.59-5.38); Red Cell Distribution Width 13.7 % (11.5-14.5); WBC 7.3 K/mcL (4.5-11.0)
[2023-05-06] MEDS: OMEPRAZOLE 20 MG CAPSULE PO SCH ×2 (11:05→17:32)
[2023-05-06 11:08] LABS: Blood Urea Nitrogen 5 mg/dL (8-23); Calcium 10.9 mg/dL (8.6-10.4); Carbon Dioxide 20 mmol/L (22-30); Chloride 101 mmol/L (96-108); Glomerular Filtration Rate 65; Glucose 166 mg/dL (70-105)
[2023-05-06] MEDS: Tiotropium Bromide [Spiriva Respimat] 2.5 mcg/act INH SCH (11:53)
[2023-05-06] MEDS: DULoxetine 20 MG CAPSULE PO SCH (21:20)
[2023-05-07] MEDS: IPRATROPIUM/ALBUTEROL 3 ML AMPUL.NEB NEB SCH ×4 (01:33→19:32)
[2023-05-07 06:57] LABS: Basophils # (Auto) 0.06 K/mcL (0.00-0.30); Basophils % (Auto) 0.9 % (0.0-2.0); Eosinophils # (Auto) 0.37 K/mcL (0.00-0.70); Eosinophils % (Auto) 5.5 % (0.0-7.0); Hematocrit 34.9 % (34.1-44.9); Hemoglobin 11.2 g/dL (11.2-15.7); Lymphocytes # (Auto) 1.86 K/mcL (1.50-4.80); Lymphocytes % (Auto) 27.5 % (15.5-49.0); Mean Cell Volume 95.6 fL (80.0-100.0); Mean Corpuscular HGB Conc 32.1 g/dL (31.0-36.0); Mean Platelet Volume 10.7 fL (8.8-12.5); Monocytes % (Auto) 5.9 % (1.0-12.0); Neutrophils % (Auto) 59.8 % (38.0-78.0); Platelet Count 197 K/mcL (140-440); RBC 3.65 M/mcL (3.59-5.38); Red Cell Distribution Width 13.2 % (11.5-14.5); WBC 6.8 K/mcL (4.5-11.0)
[2023-05-07 07:22] LABS: Blood Urea Nitrogen 6 mg/dL (8-23); Calcium 11.1 mg/dL (8.6-10.4); Carbon Dioxide 23 mmol/L (22-30); Chloride 102 mmol/L (96-108); Glomerular Filtration Rate 65; Glucose 124 mg/dL (70-105)
[2023-05-07] MEDS: BUDESONIDE 0.5 MG/2 ML AMPUL.NEB NEB SCH ×2 (07:32→19:32)
[2023-05-07] MEDS: INSULIN LISPRO 1 UNIT/0.01 ML UNIT SQ SCH ×4 (07:52→17:37)
[2023-05-07] MEDS: OMEPRAZOLE 20 MG CAPSULE PO SCH ×2 (07:53→16:46)
[2023-05-07] MEDS: metFORMIN 500 MG TABLET PO SCH ×2 (07:53→16:46)
[2023-05-07] MEDS: POTASSIUM CHLORIDE 20 MEQ PACKET PO SCH ×2 (07:53→16:47)
[2023-05-07] MEDS: INSULIN GLARGINE, HUMAN 1 UNIT/0.01 ML SQ SCH (08:57)
[2023-05-07] MEDS: DOCUSATE SODIUM 100 MG CAPSULE PO SCH ×2 (08:58→21:05)
[2023-05-07] MEDS: Tiotropium Bromide [Spiriva Respimat] 2.5 mcg/act INH SCH (08:58)
[2023-05-07] MEDS: MONTELUKAST 10 MG TABLET PO SCH (08:58)
[2023-05-07] MEDS: DULoxetine 20 MG CAPSULE PO SCH (20:59)
[2023-05-08] MEDS: IPRATROPIUM/ALBUTEROL 3 ML AMPUL.NEB NEB SCH ×3 (01:12→13:10)
[2023-05-08 06:55] LABS: Basophils # (Auto) 0.05 K/mcL (0.00-0.30); Basophils % (Auto) 0.7 % (0.0-2.0); Eosinophils # (Auto) 0.37 K/mcL (0.00-0.70); Eosinophils % (Auto) 5.5 % (0.0-7.0); Hematocrit 34.7 % (34.1-44.9); Hemoglobin 11.3 g/dL (11.2-15.7); Lymphocytes # (Auto) 1.66 K/mcL (1.50-4.80); Lymphocytes % (Auto) 24.5 % (15.5-49.0); Mean Corpuscular HGB Conc 32.6 g/dL (31.0-36.0); Mean Platelet Volume 10.5 fL (8.8-12.5); Monocytes # (Auto) 0.45 K/mcL (0.10-0.90); Monocytes % (Auto) 6.6 % (1.0-12.0); Neutrophils % (Auto) 62.4 % (38.0-78.0); Platelet Count 224 K/mcL (140-440); RBC 3.69 M/mcL (3.59-5.38); Red Cell Distribution Width 13.2 % (11.5-14.5); WBC 6.8 K/mcL (4.5-11.0)
[2023-05-08 07:19] LABS: Blood Urea Nitrogen 7 mg/dL (8-23); Calcium 11.4 mg/dL (8.6-10.4); Carbon Dioxide 24 mmol/L (22-30); Chloride 100 mmol/L (96-108); Glomerular Filtration Rate 65; Glucose 134 mg/dL (70-105)
[2023-05-08] MEDS: BUDESONIDE 0.5 MG/2 ML AMPUL.NEB NEB SCH (07:35)
[2023-05-08] MEDS: POTASSIUM CHLORIDE 20 MEQ PACKET PO SCH (08:10)
[2023-05-08] MEDS: INSULIN LISPRO 1 UNIT/0.01 ML UNIT SQ SCH ×2 (08:10→11:23)
[2023-05-08] MEDS: OMEPRAZOLE 20 MG CAPSULE PO SCH (08:11)
[2023-05-08] MEDS: metFORMIN 500 MG TABLET PO SCH (08:11)
[2023-05-08] MEDS: MONTELUKAST 10 MG TABLET PO SCH (09:59)
[2023-05-08] MEDS: Tiotropium Bromide [Spiriva Respimat] 2.5 mcg/act INH SCH (09:59)
[2023-05-08] MEDS: DOCUSATE SODIUM 100 MG CAPSULE PO SCH (10:00)
[2023-05-08] MEDS: INSULIN GLARGINE, HUMAN 1 UNIT/0.01 ML SQ SCH (10:00)
== END 2023-05-08 13:30 | disposition home or self-care (01) | DRG 638 ==
LOC: ED 10:46 → ICU 14:47 → MEDSUR 05-06 13:50
PROVIDERS: ADMIT Internal Medicine; ATTEND Internal Medicine